=== PATIENT | male | born 1960 | race Caucasian/White ===

== ENCOUNTER 2018-01-10 12:48 | Inpatient (IN) | payer MEDICARE, MEDICAID ==
[~2018-01-10] VITALS: Ht 170.2 cm; Wt 67.9 kg
[~2018-01-10 12:48] MED LIST: ARIP10TA8 PO; ARIP400S3 IM; DOCU250C91 PO; FLUO-191 PO; VITA-328 PO
[2018-01-10 15:39] LABS: BASOPHILS % (AUTO) 0.4 % (0.0-2.0); EOSINOPHILS % (AUTO) 0.1 % (1.0-6.0); HEMATOCRIT 43.9 % (41-53); HEMOGLOBIN 15.3 g/dL (13.5-17.5); LYMPHOCYTES # (AUTO) 0.7 K/uL (1.0-4.8); LYMPHOCYTES % (AUTO) 12.5 % (22.0-44.0); MEAN CORPUSCULAR HEMOGLOBIN 29.6 pg (26.0-34.0); MEAN CORPUSCULAR HGB CONC 34.8 G/dL (31.0-37.0); MEAN CORPUSCULAR VOLUME 85 fL (80-100); MONOCYTES # (AUTO) 0.5 K/uL (0.1-1.0); MONOCYTES % (AUTO) 9.5 % (2.0-9.0); NEUTROPHILS # (AUTO) 4.4 K/uL (1.8-7.7); NEUTROPHILS % (AUTO) 77.5 % (40.0-70.0); PLATELET COUNT (AUTO) 172 K/uL (150-450); RED BLOOD CELL COUNT(AUTO) 5.16 MIL/uL (4.50-5.90); RED CELL DISTRIBUTION WIDTH 13.2 % (11.5-14.5)
[2018-01-10 16:09] LABS: ANION GAP 5 mmol/L (8-16); CALCIUM, TOTAL 8.9 mg/dL (8.8-10.5); CARBON DIOXIDE 30 mmol/L (22-29); CHLORIDE 105 mmol/L (98-107); CREATININE 0.75 mg/dL (0.60-1.30); GLOMERULAR FILTR. RATE CALC > 60 mL/min (>60); GLUCOSE,RANDOM 99 mg/dL (70-110); POTASSIUM 3.8 mmol/L (3.5-5.1); SODIUM SERUM 140 mmol/L (136-145); UREA NITROGEN, BLOOD 7 mg/dL (7-18)
[2018-01-10 16:16] LABS: ALANINE AMINOTRANSFERASE 26 U/L (12-78); ALBUMIN 4.2 g/dL (3.4-5.0); ALKALINE PHOSPHATASE 45 U/L (46-116); ASPARTATE AMINOTRANSFERASE 17 U/L (15-37); BILIRUBIN,TOTAL 0.7 mg/dL (0.1-1.0)
[2018-01-10] MEDS ORDERED: ZOLPIDEM TARTRATE 10 MG TABLET PO PRN (22:00)
[2018-01-11 00:05] VITALS: BP 138/95
[2018-01-11] MEDS: OLANZapine 5 MG RAPDIS TABLET PO PRN (00:15)
[2018-01-11] MEDS: LORazepam 2 MG TABLET PO PRN (00:15)
[2018-01-11] MEDS ORDERED: PNEUMOCOCCAL VACCINE POLYVALENT 0.5 ML VIAL [PPSV23] IM ONE (02:00)
[2018-01-11 08:31] VITALS: BP 138/83
[2018-01-11] MEDS ORDERED: ACETAMINOPHEN 325 MG TABLET PO PRN (12:30)
[2018-01-11] MEDS ORDERED: MAG HYDROX/AL HYDROX/SIMETH ES 30 ML SUSPENSION UDCUP PO PRN (12:30)
[2018-01-11] MEDS ORDERED: HydrOXYzine PAMOATE 50 MG CAPSULE PO PRN (12:30)
[2018-01-11] MEDS ORDERED: MAGNESIUM HYDROXIDE SUSPENSION 30 ML UDCUP PO PRN (12:30)
[2018-01-11] MEDS ORDERED: GuaiFENesin/D-METHORPHAN [SUGAR-FREE] 200-20MG/10 ML SYRUP UDCUP PO PRN (12:30)
[2018-01-11] MEDS ORDERED: PROMETHAZINE HCL 25 MG TABLET PO PRN (12:30)
[2018-01-11] MEDS ORDERED: TUBERCULIN, PURIFIED PROTEIN DERIVATIVE 5 TU/0.1 ML SYG ID ONE (12:30)
[2018-01-11] MEDS ORDERED: LOPERAMIDE HCL 2 MG CAPSULE PO PRN (12:30)
[2018-01-11 16:03] VITALS: BP 115/78
[2018-01-11] MEDS: THIAMINE HCL 100 MG TABLET PO SCH (16:33)
[2018-01-11] MEDS: OLANZapine 5 MG RAPDIS TABLET PO SCH (20:43)
[2018-01-12 07:18] VITALS: BP 140/62
[2018-01-12 08:00] VITALS: BP 116/84
[2018-01-12] MEDS: FOLIC ACID 1 MG TABLET PO SCH (08:08)
[2018-01-12] MEDS: MULTIVITAMINS WITH MINERALS, THERAPEUTIC TABLET PO SCH (08:08)
[2018-01-12] MEDS: THIAMINE HCL 100 MG TABLET PO SCH ×2 (08:08→17:05)
[2018-01-12] MEDS: FLUoxetine HCL 20 MG CAPSULE PO SCH (08:12)
[2018-01-12 08:33] LABS: AMPHET/METH SCREEN,URINE NEGATIVE (NEGATIVE); BARBITURATE SCREEN, URINE NEGATIVE (NEGATIVE); BENZODIAZEPINES SCREEN,URINE NEGATIVE (NEGATIVE); CANNABINOID SCREEN,URINE NEGATIVE (NEGATIVE); COCAINE SCREEN,URINE NEGATIVE (NEGATIVE); METHADONE SCREEN, URINE NEGATIVE (NEGATIVE); OPIATE SCREEN,URINE NEGATIVE (NEGATIVE)
[2018-01-12 08:35] LABS: PHENCYCLIDINE SCREEN,URINE NEGATIVE (NEGATIVE)
[2018-01-12 09:09] LABS: BILIRUBIN,URINE NEGATIVE (NEGATIVE); GLUCOSE, URINE (UA) NEGATIVE (NEGATIVE); KETONES,URINE TRACE mg/dL (NEGATIVE); LEUKOCYTE ESTERASE ,URINE NEGATIVE (NEGATIVE); NITRATE,URINE NEGATIVE (NEGATIVE); OCCULT BLOOD,URINE NEGATIVE (NEGATIVE); PROTEIN,URINE NEGATIVE (NEGATIVE)
[2018-01-12 09:30] LABS: APPEARANCE,URINE SLIGHTLY CLOUDY (CLEAR)
[2018-01-12 09:31] LABS: RBC,URINE None Seen /HPF (0-2)
[2018-01-12 09:33] LABS: BACTERIA,URINE Few /HPF (None Seen); SQUAMOUS EPITHELIAL CELL,UR Rare /LPF (None Seen); TRIPLE PHOSPHATE CRYSTAL,UR Few /LPF (None Seen); WBC,URINE None Seen /HPF (0-5)
[2018-01-12 16:03] VITALS: BP 136/72
[2018-01-12] MEDS: OLANZapine 5 MG RAPDIS TABLET PO SCH (20:49)
[2018-01-13 05:43] VITALS: BP 139/86
[2018-01-13] MEDS: FLUoxetine HCL 20 MG CAPSULE PO SCH (08:09)
[2018-01-13] MEDS: MULTIVITAMINS WITH MINERALS, THERAPEUTIC TABLET PO SCH (08:09)
[2018-01-13] MEDS: OLANZapine 5 MG RAPDIS TABLET PO PRN (08:09)
[2018-01-13] MEDS: THIAMINE HCL 100 MG TABLET PO SCH ×2 (08:09→16:44)
[2018-01-13] MEDS: FOLIC ACID 1 MG TABLET PO SCH (08:09)
[2018-01-13] MEDS: LORazepam 2 MG TABLET PO PRN (08:09)
[2018-01-13 11:09] VITALS: BP 136/80
[2018-01-13] MEDS ORDERED: OLANZapine 10 MG RAPDIS TABLET PO PRN (14:00)
[2018-01-13 16:03] VITALS: BP 138/85
[2018-01-13] MEDS: OLANZapine 5 MG RAPDIS TABLET PO SCH (20:44)
[2018-01-14 06:43] VITALS: BP 130/63
[2018-01-14 08:25] VITALS: BP 114/80
[2018-01-14] MEDS: FOLIC ACID 1 MG TABLET PO SCH (08:39)
[2018-01-14] MEDS: THIAMINE HCL 100 MG TABLET PO SCH ×2 (08:39→17:02)
[2018-01-14] MEDS: MULTIVITAMINS WITH MINERALS, THERAPEUTIC TABLET PO SCH (08:39)
[2018-01-14] MEDS: FLUoxetine HCL 20 MG CAPSULE PO SCH (08:43)
[2018-01-14 09:25] LABS: HEMOGLOBIN A1C 5.8 % (4.5-6.2)
[2018-01-14 10:07] LABS: CHOL/HDL RATIO 3.5 (4.2-7.3); CHOLESTEROL 205 mg/dL (131-200); CREATINE KINASE, TOTAL 44 U/L (39-308); FREE T4 (FREE THYROXINE) 0.95 ng/dL (0.76-1.46); HDL CHOLESTEROL 59 mg/dL (40-60); LDL CHOL (CALC.) 128 mg/dL (0-130); THYROID STIMULATING HORMONE 1.29 uIU/mL (0.36-3.74); TRIGLYCERIDES 92 mg/dL (15-150)
[2018-01-14 10:51] LABS: FOLATE SERUM 10.6 ng/mL (5.4-)
[2018-01-14 16:05] VITALS: BP 135/72
[2018-01-14] MEDS: OLANZapine 5 MG RAPDIS TABLET PO SCH (20:21)
[2018-01-15 05:45] VITALS: BP 131/79
[2018-01-15] MEDS: MULTIVITAMINS WITH MINERALS, THERAPEUTIC TABLET PO SCH (08:01)
[2018-01-15] MEDS: THIAMINE HCL 100 MG TABLET PO SCH ×2 (08:01→16:39)
[2018-01-15] MEDS: FOLIC ACID 1 MG TABLET PO SCH (08:01)
[2018-01-15] MEDS: FLUoxetine HCL 20 MG CAPSULE PO SCH (08:02)
[2018-01-15 08:30] VITALS: BP 138/65
[2018-01-15 16:04] VITALS: BP 135/81
[2018-01-15] MEDS: OLANZapine 5 MG RAPDIS TABLET PO SCH (21:00)
[2018-01-15] MEDS: OXcarbazepine 300 MG TABLET PO SCH (21:00)
[2018-01-16 00:30] VITALS: BP 160/91
[2018-01-16] MEDS: CloNIDine HCL 0.1 MG TABLET PO PRN (00:35)
[2018-01-16 01:35] VITALS: BP 135/80
[2018-01-16 02:30] VITALS: BP 135/80
[2018-01-16] MEDS: FOLIC ACID 1 MG TABLET PO SCH (08:08)
[2018-01-16] MEDS: MULTIVITAMINS WITH MINERALS, THERAPEUTIC TABLET PO SCH (08:08)
[2018-01-16] MEDS: THIAMINE HCL 100 MG TABLET PO SCH ×2 (08:08→16:04)
[2018-01-16 08:16] VITALS: BP 131/85
[2018-01-16 16:06] VITALS: BP 126/72
[2018-01-16] MEDS: OXcarbazepine 300 MG TABLET PO SCH (20:03)
[2018-01-16] MEDS: OLANZapine 5 MG RAPDIS TABLET PO SCH (20:03)
[2018-01-17 05:27] VITALS: BP_SYST 165; BP_DIAS 89; BP_DIAS 98
[2018-01-17] MEDS: CloNIDine HCL 0.1 MG TABLET PO PRN (06:03)
[2018-01-17 07:03] VITALS: BP 135/80
[2018-01-17 07:34] VITALS: BP_SYST 135
[2018-01-17] MEDS: THIAMINE HCL 100 MG TABLET PO SCH ×2 (08:07→16:20)
[2018-01-17] MEDS: FOLIC ACID 1 MG TABLET PO SCH (08:07)
[2018-01-17] MEDS: MULTIVITAMINS WITH MINERALS, THERAPEUTIC TABLET PO SCH (08:07)
[2018-01-17 08:29] VITALS: BP 133/82
[2018-01-17 16:05] VITALS: BP 126/68
[2018-01-17] MEDS: OXcarbazepine 300 MG TABLET PO SCH (21:12)
[2018-01-17] MEDS: OLANZapine 5 MG RAPDIS TABLET PO SCH (21:12)
[2018-01-18 06:05] VITALS: BP 142/86
[2018-01-18] MEDS: THIAMINE HCL 100 MG TABLET PO SCH ×2 (08:01→16:32)
[2018-01-18] MEDS: FOLIC ACID 1 MG TABLET PO SCH (08:01)
[2018-01-18] MEDS: MULTIVITAMINS WITH MINERALS, THERAPEUTIC TABLET PO SCH (08:01)
[2018-01-18 08:20] VITALS: BP 126/72
[2018-01-18 16:08] VITALS: BP 136/84
[2018-01-18] MEDS: DOCUSATE SODIUM 250 MG CAPSULE PO SCH (16:32)
[2018-01-18] MEDS: OLANZapine 10 MG RAPDIS TABLET PO SCH (20:43)
[2018-01-19 05:44] VITALS: BP 153/75
[2018-01-19] MEDS: MULTIVITAMINS WITH MINERALS, THERAPEUTIC TABLET PO SCH (08:05)
[2018-01-19] MEDS: FOLIC ACID 1 MG TABLET PO SCH (08:05)
[2018-01-19] MEDS: THIAMINE HCL 100 MG TABLET PO SCH ×2 (08:06→16:34)
[2018-01-19] MEDS: DOCUSATE SODIUM 250 MG CAPSULE PO SCH ×2 (08:06→16:34)
[2018-01-19 08:15] VITALS: BP 112/51
[2018-01-19] MEDS: CloNIDine HCL 0.1 MG TABLET PO PRN (16:08)
[2018-01-19 16:13] VITALS: BP 164/99
[2018-01-19 17:00] VITALS: BP 139/81
[2018-01-19] MEDS: OLANZapine 10 MG RAPDIS TABLET PO SCH (20:57)
[2018-01-20 05:11] VITALS: BP 140/74
[2018-01-20] MEDS: DOCUSATE SODIUM 250 MG CAPSULE PO SCH ×2 (08:07→16:08)
[2018-01-20] MEDS: FOLIC ACID 1 MG TABLET PO SCH (08:07)
[2018-01-20] MEDS: MULTIVITAMINS WITH MINERALS, THERAPEUTIC TABLET PO SCH (08:07)
[2018-01-20] MEDS: THIAMINE HCL 100 MG TABLET PO SCH ×2 (08:07→16:08)
[2018-01-20 08:41] VITALS: BP 137/74
[2018-01-20 16:11] VITALS: BP 109/62
[2018-01-20] MEDS: OLANZapine 10 MG RAPDIS TABLET PO SCH (20:26)
[2018-01-21] VITALS (7 sets, daily range): BP systolic 116–164; BP diastolic 69–98
[2018-01-21] MEDS: CloNIDine HCL 0.1 MG TABLET PO PRN ×2 (00:58→17:02)
[2018-01-21] MEDS: MULTIVITAMINS WITH MINERALS, THERAPEUTIC TABLET PO SCH (08:14)
[2018-01-21] MEDS: THIAMINE HCL 100 MG TABLET PO SCH (08:14)
[2018-01-21] MEDS: DOCUSATE SODIUM 250 MG CAPSULE PO SCH ×2 (08:14→16:09)
[2018-01-21] MEDS: FOLIC ACID 1 MG TABLET PO SCH (08:14)
[2018-01-21] MEDS: AmLODIPine BESYLATE 2.5 MG TABLET PO SCH (11:55)
[2018-01-21] MEDS: OLANZapine 10 MG RAPDIS TABLET PO SCH (20:18)
[2018-01-22 00:15] VITALS: BP 130/77
[2018-01-22] MEDS: AmLODIPine BESYLATE 2.5 MG TABLET PO SCH (08:11)
[2018-01-22] MEDS: MULTIVITAMINS WITH MINERALS, THERAPEUTIC TABLET PO SCH (08:11)
[2018-01-22] MEDS: DOCUSATE SODIUM 250 MG CAPSULE PO SCH ×2 (08:11→16:09)
[2018-01-22 08:32] VITALS: BP 116/60
[2018-01-22 16:33] VITALS: BP 143/85
[2018-01-22] MEDS: OLANZapine 10 MG RAPDIS TABLET PO SCH (20:16)
[2018-01-23 07:17] VITALS: BP 140/90
[2018-01-23] MEDS: AmLODIPine BESYLATE 2.5 MG TABLET PO SCH (08:19)
[2018-01-23] MEDS: DOCUSATE SODIUM 250 MG CAPSULE PO SCH ×2 (08:19→16:15)
[2018-01-23] MEDS: MULTIVITAMINS WITH MINERALS, THERAPEUTIC TABLET PO SCH (08:19)
[2018-01-23 08:35] VITALS: BP 147/86
[2018-01-23 16:21] VITALS: BP_SYST 143; BP_DIAS 86; BP_DIAS 96
[2018-01-23] MEDS: OLANZapine 10 MG RAPDIS TABLET PO SCH (20:12)
[2018-01-24 06:43] VITALS: BP 131/70
[2018-01-24 08:00] VITALS: BP 139/88
[2018-01-24] MEDS: AmLODIPine BESYLATE 2.5 MG TABLET PO SCH (08:20)
[2018-01-24] MEDS: DOCUSATE SODIUM 250 MG CAPSULE PO SCH ×2 (08:20→16:37)
[2018-01-24] MEDS: MULTIVITAMINS WITH MINERALS, THERAPEUTIC TABLET PO SCH (08:20)
[2018-01-24 16:27] VITALS: BP 153/82
[2018-01-24] MEDS: OLANZapine 10 MG RAPDIS TABLET PO SCH (20:36)
[2018-01-24 20:46] VITALS: BP 141/77
[2018-01-25 00:05] VITALS: BP 140/81
[2018-01-25 08:26] VITALS: BP 149/87
[2018-01-25] MEDS: AmLODIPine BESYLATE 2.5 MG TABLET PO SCH (08:44)
[2018-01-25] MEDS: MULTIVITAMINS WITH MINERALS, THERAPEUTIC TABLET PO SCH (08:44)
[2018-01-25] MEDS: DOCUSATE SODIUM 250 MG CAPSULE PO SCH ×2 (08:44→16:36)
[2018-01-25] MEDS ORDERED: DULoxetine HCL 20 MG CAPSULE PO SCH (09:00)
[2018-01-25 16:10] VITALS: BP 138/76
[2018-01-25] MEDS: OLANZapine 10 MG RAPDIS TABLET PO SCH (20:32)
[2018-01-26 01:14] VITALS: BP 142/90
[2018-01-26 06:25] VITALS: BP 135/86
[2018-01-26 08:12] VITALS: BP 136/76
[2018-01-26] MEDS: AmLODIPine BESYLATE 5 MG TABLET PO SCH (08:53)
[2018-01-26] MEDS: DOCUSATE SODIUM 250 MG CAPSULE PO SCH ×2 (08:53→16:33)
[2018-01-26] MEDS: MULTIVITAMINS WITH MINERALS, THERAPEUTIC TABLET PO SCH (08:53)
[2018-01-26] MEDS ORDERED: DULoxetine HCL 30 MG CAPSULE PO SCH (09:00)
[2018-01-26 16:18] VITALS: BP 137/86
[2018-01-26] MEDS: OLANZapine 10 MG RAPDIS TABLET PO SCH (20:31)
[2018-01-27 00:03] VITALS: BP 133/83
[2018-01-27 08:00] VITALS: BP 128/76
[2018-01-27] MEDS: DULoxetine HCL 20 MG CAPSULE PO SCH (08:07)
[2018-01-27] MEDS: DOCUSATE SODIUM 250 MG CAPSULE PO SCH ×2 (08:07→16:32)
[2018-01-27] MEDS: MULTIVITAMINS WITH MINERALS, THERAPEUTIC TABLET PO SCH (08:07)
[2018-01-27] MEDS: AmLODIPine BESYLATE 5 MG TABLET PO SCH (08:07)
[2018-01-27] MEDS ORDERED: OLAN10TA22 PO (12:37)
[2018-01-27] MEDS ORDERED: DULO20CA30 PO (12:37)
[2018-01-27] MEDS: CloNIDine HCL 0.1 MG TABLET PO PRN (16:08)
[2018-01-27 16:13] VITALS: BP 173/96
[2018-01-27 17:10] VITALS: BP 139/72
[2018-01-27] MEDS: OLANZapine 10 MG RAPDIS TABLET PO SCH (20:34)
[2018-01-27] MEDS ORDERED: DOCU250C91 PO (21:46)
[2018-01-27] MEDS ORDERED: AMLO-511 PO (21:46)
[2018-01-28 07:28] VITALS: BP 151/83
[2018-01-28] MEDS: DULoxetine HCL 20 MG CAPSULE PO SCH (08:11)
[2018-01-28] MEDS: DOCUSATE SODIUM 250 MG CAPSULE PO SCH (08:11)
[2018-01-28] MEDS: AmLODIPine BESYLATE 5 MG TABLET PO SCH (08:11)
[2018-01-28] MEDS: MULTIVITAMINS WITH MINERALS, THERAPEUTIC TABLET PO SCH (08:11)
[2018-01-28 08:30] VITALS: BP 131/82
== END 2018-01-28 10:35 | disposition home or self-care (01) | DRG 885 ==
LOC: EMS 12:50 → B2X 21:00
PROVIDERS: ADMIT Psychiatry & Neurology Psychiatry; ATTEND Psychiatry & Neurology Psychiatry
DX: F33.3 Major depressive disorder, recurrent, severe with psychotic symptoms (principal); G93.40 Encephalopathy, unspecified; F10.231 Alcohol dependence with withdrawal delirium; D64.9 Anemia, unspecified; E78.00 Pure hypercholesterolemia, unspecified; E78.5 Hyperlipidemia, unspecified; E87.6 Hypokalemia; F17.200 Nicotine dependence, unspecified, uncomplicated; G47.00 Insomnia, unspecified; I10 Essential (primary) hypertension; K59.00 Constipation, unspecified; Z88.0 Allergy status to penicillin; Z91.19 Patient's noncompliance with other medical treatment and regimen; Z28.21 Immunization not carried out because of patient refusal
CPT/HCPCS: 70450; 80074; 82306; 82607; 82746; 83036; 83735; 84439; 84443; 86592; 99285; G0480

== ENCOUNTER 2018-02-25 08:44 | Inpatient (IN) | payer MEDICARE, MEDICAID ==
[~2018-02-25] VITALS: Ht 177.8 cm; Wt 64.4 kg
[~2018-02-25 08:44] MED LIST changes: +AMLO-511 PO; -ARIP10TA8 PO; -ARIP400S3 IM; +DULO20CA30 PO; -FLUO-191 PO; +OLAN10TA22 PO; -VITA-328 PO
[2018-02-25 09:12] LABS: BASOPHILS % (AUTO) 0.4 % (0.0-2.0); EOSINOPHILS % (AUTO) 0.1 % (1.0-6.0); HEMATOCRIT 45.2 % (41-53); HEMOGLOBIN 15.6 g/dL (13.5-17.5); LYMPHOCYTES # (AUTO) 0.7 K/uL (1.0-4.8); LYMPHOCYTES % (AUTO) 9.3 % (22.0-44.0); MEAN CORPUSCULAR HEMOGLOBIN 29.7 pg (26.0-34.0); MEAN CORPUSCULAR HGB CONC 34.6 G/dL (31.0-37.0); MEAN CORPUSCULAR VOLUME 86 fL (80-100); MONOCYTES # (AUTO) 0.8 K/uL (0.1-1.0); MONOCYTES % (AUTO) 9.6 % (2.0-9.0); NEUTROPHILS # (AUTO) 6.4 K/uL (1.8-7.7); NEUTROPHILS % (AUTO) 80.6 % (40.0-70.0); PLATELET COUNT (AUTO) 158 K/uL (150-450); RED BLOOD CELL COUNT(AUTO) 5.26 MIL/uL (4.50-5.90); RED CELL DISTRIBUTION WIDTH 12.9 % (11.5-14.5)
[2018-02-25 09:21] LABS: ANION GAP 6 mmol/L (8-16); CALCIUM, TOTAL 9.2 mg/dL (8.8-10.5); CARBON DIOXIDE 32 mmol/L (22-29); CHLORIDE 103 mmol/L (98-107); CREATININE 0.76 mg/dL (0.60-1.30); GLOMERULAR FILTR. RATE CALC > 60 mL/min (>60); GLUCOSE,RANDOM 114 mg/dL (70-110); POTASSIUM 3.8 mmol/L (3.5-5.1); SODIUM SERUM 141 mmol/L (136-145); UREA NITROGEN, BLOOD 7 mg/dL (7-18)
[2018-02-25 09:27] LABS: ALANINE AMINOTRANSFERASE 23 U/L (12-78); ALBUMIN 4.1 g/dL (3.4-5.0); ALKALINE PHOSPHATASE 61 U/L (46-116); ASPARTATE AMINOTRANSFERASE 14 U/L (15-37); BILIRUBIN,TOTAL 0.7 mg/dL (0.1-1.0); TOTAL PROTEIN, SERUM 7.2 g/dL (6.4-8.2)
[2018-02-25] MEDS ORDERED: ACETAMINOPHEN 325 MG TABLET PO PRN (14:30)
[2018-02-25] MEDS ORDERED: PROMETHAZINE HCL 25 MG TABLET PO PRN (14:30)
[2018-02-25] MEDS ORDERED: LORazepam 2 MG TABLET PO PRN (14:30)
[2018-02-25] MEDS ORDERED: ZOLPIDEM TARTRATE 10 MG TABLET PO PRN (14:30)
[2018-02-25] MEDS ORDERED: OLANZapine 5 MG RAPDIS TABLET PO PRN (14:30)
[2018-02-25] MEDS ORDERED: HydrOXYzine PAMOATE 50 MG CAPSULE PO PRN (14:30)
[2018-02-25] MEDS ORDERED: LOPERAMIDE HCL 2 MG CAPSULE PO PRN (14:30)
[2018-02-25] MEDS ORDERED: GuaiFENesin/D-METHORPHAN [SUGAR-FREE] 200-20MG/10 ML SYRUP UDCUP PO PRN (14:30)
[2018-02-25] MEDS ORDERED: MAGNESIUM HYDROXIDE SUSPENSION 30 ML UDCUP PO PRN (14:30)
[2018-02-25] MEDS ORDERED: MAG HYDROX/AL HYDROX/SIMETH ES 30 ML SUSPENSION UDCUP PO PRN (14:30)
[2018-02-25] MEDS: THIAMINE HCL 100 MG TABLET PO SCH (18:45)
[2018-02-25 19:30] VITALS: BP 113/57
[2018-02-25] MEDS ORDERED: PNEUMOCOCCAL VACCINE POLYVALENT 0.5 ML VIAL [PPSV23] IM ONE (19:30)
[2018-02-25] MEDS ORDERED: OLANZapine 5 MG RAPDIS TABLET PO SCH (21:00)
[2018-02-26 01:21] VITALS: BP 115/70
[2018-02-26 08:17] VITALS: BP 122/84
[2018-02-26] MEDS: DULoxetine HCL 20 MG CAPSULE PO SCH (08:19)
[2018-02-26] MEDS: DOCUSATE SODIUM 250 MG CAPSULE PO SCH ×2 (08:19→16:23)
[2018-02-26] MEDS: MULTIVITAMINS WITH MINERALS, THERAPEUTIC TABLET PO SCH (08:19)
[2018-02-26] MEDS: AmLODIPine BESYLATE 5 MG TABLET PO SCH (08:19)
[2018-02-26] MEDS: THIAMINE HCL 100 MG TABLET PO SCH ×2 (08:19→16:23)
[2018-02-26] MEDS: FOLIC ACID 1 MG TABLET PO SCH (08:19)
[2018-02-26 16:04] VITALS: BP 146/88
[2018-02-26] MEDS ORDERED: OLANZapine 10 MG TABLET PO SCH (21:00)
[2018-02-27 00:35] VITALS: BP 154/87
[2018-02-27 08:45] VITALS: BP 121/86
[2018-02-27] MEDS: DULoxetine HCL 20 MG CAPSULE PO SCH (08:47)
[2018-02-27] MEDS: FOLIC ACID 1 MG TABLET PO SCH (08:47)
[2018-02-27] MEDS: THIAMINE HCL 100 MG TABLET PO SCH ×2 (08:47→16:22)
[2018-02-27] MEDS: AmLODIPine BESYLATE 5 MG TABLET PO SCH (08:47)
[2018-02-27] MEDS: MULTIVITAMINS WITH MINERALS, THERAPEUTIC TABLET PO SCH (08:47)
[2018-02-27] MEDS: DOCUSATE SODIUM 250 MG CAPSULE PO SCH ×2 (08:47→16:22)
[2018-02-27 16:05] VITALS: BP 123/89
[2018-02-27] MEDS ORDERED: OLANZapine 10 MG TABLET PO SCH (21:00)
[2018-02-28 00:49] VITALS: BP 160/98
[2018-02-28] MEDS ORDERED: CloNIDine HCL 0.1 MG TABLET PO PRN (06:30)
[2018-02-28 06:49] VITALS: BP 136/91
[2018-02-28] MEDS: AmLODIPine BESYLATE 5 MG TABLET PO SCH (08:46)
[2018-02-28 08:51] VITALS: BP 145/88
[2018-02-28] MEDS: MULTIVITAMINS WITH MINERALS, THERAPEUTIC TABLET PO SCH (08:54)
[2018-02-28] MEDS: DOCUSATE SODIUM 250 MG CAPSULE PO SCH ×2 (08:54→17:12)
[2018-02-28] MEDS: THIAMINE HCL 100 MG TABLET PO SCH ×2 (08:54→17:12)
[2018-02-28] MEDS: FOLIC ACID 1 MG TABLET PO SCH (08:54)
[2018-02-28] MEDS: DULoxetine HCL 20 MG CAPSULE PO SCH (08:54)
[2018-02-28] MEDS ORDERED: PROMETHAZINE HCL 25 MG TABLET PO PRN (11:15)
[2018-02-28] MEDS ORDERED: LOPERAMIDE HCL 2 MG CAPSULE PO PRN (11:15)
[2018-02-28] MEDS ORDERED: ACETAMINOPHEN 325 MG TABLET PO PRN (11:15)
[2018-02-28] MEDS ORDERED: MAG HYDROX/AL HYDROX/SIMETH ES 30 ML SUSPENSION UDCUP PO PRN (11:15)
[2018-02-28] MEDS ORDERED: MAGNESIUM HYDROXIDE SUSPENSION 30 ML UDCUP PO PRN (11:15)
[2018-02-28 16:17] VITALS: BP 113/72
[2018-02-28] MEDS: OLANZapine 7.5 MG TABLET PO SCH (21:00)
[2018-03-01 08:10] VITALS: BP 141/89
[2018-03-01] MEDS: DOCUSATE SODIUM 250 MG CAPSULE PO SCH ×2 (09:00→16:35)
[2018-03-01] MEDS: DULoxetine HCL 20 MG CAPSULE PO SCH (09:00)
[2018-03-01] MEDS: AmLODIPine BESYLATE 5 MG TABLET PO SCH ×2 (09:00→10:37)
[2018-03-01] MEDS: FOLIC ACID 1 MG TABLET PO SCH (09:00)
[2018-03-01] MEDS: THIAMINE HCL 100 MG TABLET PO SCH ×2 (09:00→16:35)
[2018-03-01] MEDS: MULTIVITAMINS WITH MINERALS, THERAPEUTIC TABLET PO SCH (09:00)
[2018-03-01 16:18] VITALS: BP 121/72
[2018-03-01] MEDS: OLANZapine 7.5 MG TABLET PO SCH (20:41)
[2018-03-02 01:39] VITALS: BP 120/70
[2018-03-02 08:00] VITALS: BP 125/79
[2018-03-02] MEDS: DULoxetine HCL 20 MG CAPSULE PO SCH (08:37)
[2018-03-02] MEDS: AmLODIPine BESYLATE 5 MG TABLET PO SCH (08:37)
[2018-03-02] MEDS: DOCUSATE SODIUM 250 MG CAPSULE PO SCH ×2 (08:37→16:22)
[2018-03-02] MEDS: MULTIVITAMINS WITH MINERALS, THERAPEUTIC TABLET PO SCH (08:38)
[2018-03-02] MEDS: THIAMINE HCL 100 MG TABLET PO SCH ×2 (08:38→16:22)
[2018-03-02] MEDS: FOLIC ACID 1 MG TABLET PO SCH (08:38)
[2018-03-02] MEDS: OLANZapine 7.5 MG TABLET PO SCH (20:19)
[2018-03-03 06:40] VITALS: BP 138/75
[2018-03-03 08:29] VITALS: BP 144/79
[2018-03-03] MEDS: AmLODIPine BESYLATE 5 MG TABLET PO SCH (08:49)
[2018-03-03] MEDS: DULoxetine HCL 20 MG CAPSULE PO SCH (08:49)
[2018-03-03] MEDS: MULTIVITAMINS WITH MINERALS, THERAPEUTIC TABLET PO SCH (08:54)
[2018-03-03] MEDS: FOLIC ACID 1 MG TABLET PO SCH (08:54)
[2018-03-03] MEDS: DOCUSATE SODIUM 250 MG CAPSULE PO SCH ×2 (08:54→16:33)
[2018-03-03] MEDS: THIAMINE HCL 100 MG TABLET PO SCH ×2 (08:54→16:33)
[2018-03-03 16:11] VITALS: BP 121/72
[2018-03-03] MEDS: OLANZapine 7.5 MG TABLET PO SCH (20:36)
[2018-03-04 06:37] VITALS: BP 126/84
[2018-03-04 08:10] VITALS: BP 130/84
[2018-03-04] MEDS: DULoxetine HCL 20 MG CAPSULE PO SCH (08:17)
[2018-03-04] MEDS: AmLODIPine BESYLATE 5 MG TABLET PO SCH (08:17)
[2018-03-04] MEDS: THIAMINE HCL 100 MG TABLET PO SCH ×2 (08:23→16:35)
[2018-03-04] MEDS: MULTIVITAMINS WITH MINERALS, THERAPEUTIC TABLET PO SCH (08:23)
[2018-03-04] MEDS: FOLIC ACID 1 MG TABLET PO SCH (08:23)
[2018-03-04] MEDS: DOCUSATE SODIUM 250 MG CAPSULE PO SCH ×2 (08:23→16:33)
[2018-03-04] MEDS: OLANZapine 7.5 MG TABLET PO SCH (20:32)
[2018-03-05 08:22] VITALS: BP 118/72
[2018-03-05] MEDS: DULoxetine HCL 20 MG CAPSULE PO SCH (08:29)
[2018-03-05] MEDS: AmLODIPine BESYLATE 5 MG TABLET PO SCH (08:29)
[2018-03-05] MEDS: MULTIVITAMINS WITH MINERALS, THERAPEUTIC TABLET PO SCH (08:34)
[2018-03-05] MEDS: DOCUSATE SODIUM 250 MG CAPSULE PO SCH ×2 (08:34→16:39)
[2018-03-05] MEDS: FOLIC ACID 1 MG TABLET PO SCH (08:34)
[2018-03-05] MEDS: THIAMINE HCL 100 MG TABLET PO SCH ×2 (08:34→16:39)
[2018-03-05 16:16] VITALS: BP 138/67
[2018-03-05] MEDS: OLANZapine 7.5 MG TABLET PO SCH (21:19)
[2018-03-05] MEDS ORDERED: HALOPERIDOL LACTATE 5 MG/ML VIAL ONE (22:53)
[2018-03-05] MEDS ORDERED: LORazepam 2 MG/ML VIAL ONE (22:53)
[2018-03-05] MEDS ORDERED: DiphenhydrAMINE HCL 50 MG/ML VIAL ONE (22:53)
[2018-03-05] MEDS ORDERED: LORazepam 2 MG/ML VIAL IM ONE (23:00)
[2018-03-05] MEDS ORDERED: HALOPERIDOL LACTATE 5 MG/ML VIAL IM ONE (23:00)
[2018-03-05] MEDS ORDERED: DiphenhydrAMINE HCL 50 MG/ML VIAL IM ONE (23:00)
[2018-03-06 00:01] VITALS: BP 140/90
[2018-03-06 08:41] VITALS: BP 138/78
[2018-03-06] MEDS: THIAMINE HCL 100 MG TABLET PO SCH ×2 (09:00→16:16)
[2018-03-06] MEDS: AmLODIPine BESYLATE 5 MG TABLET PO SCH (09:00)
[2018-03-06] MEDS: MULTIVITAMINS WITH MINERALS, THERAPEUTIC TABLET PO SCH (09:00)
[2018-03-06] MEDS: DULoxetine HCL 20 MG CAPSULE PO SCH (09:00)
[2018-03-06] MEDS: DOCUSATE SODIUM 250 MG CAPSULE PO SCH ×2 (09:00→16:16)
[2018-03-06] MEDS: FOLIC ACID 1 MG TABLET PO SCH (09:00)
[2018-03-06 16:12] VITALS: BP 124/62
[2018-03-06] MEDS: OLANZapine 7.5 MG TABLET PO SCH (20:05)
[2018-03-07 01:56] VITALS: BP 136/67
[2018-03-07 08:37] VITALS: BP 131/73
[2018-03-07] MEDS: AmLODIPine BESYLATE 5 MG TABLET PO SCH (08:37)
[2018-03-07] MEDS: DOCUSATE SODIUM 250 MG CAPSULE PO SCH ×2 (08:37→16:37)
[2018-03-07] MEDS: MULTIVITAMINS WITH MINERALS, THERAPEUTIC TABLET PO SCH (08:37)
[2018-03-07] MEDS: THIAMINE HCL 100 MG TABLET PO SCH (08:40)
[2018-03-07] MEDS: FOLIC ACID 1 MG TABLET PO SCH (08:40)
[2018-03-07] MEDS: DULoxetine HCL 20 MG CAPSULE PO SCH (08:40)
[2018-03-07 16:05] VITALS: BP 139/81
[2018-03-07] MEDS: OLANZapine 10 MG TABLET PO SCH (20:45)
[2018-03-08 06:12] VITALS: BP 131/86
[2018-03-08] MEDS: MULTIVITAMINS WITH MINERALS, THERAPEUTIC TABLET PO SCH (08:15)
[2018-03-08] MEDS: AmLODIPine BESYLATE 5 MG TABLET PO SCH (08:15)
[2018-03-08] MEDS: DOCUSATE SODIUM 250 MG CAPSULE PO SCH ×2 (08:15→16:35)
[2018-03-08] MEDS: DULoxetine HCL 20 MG CAPSULE PO SCH (08:19)
[2018-03-08 08:31] VITALS: BP 143/89
[2018-03-08 16:19] VITALS: BP 127/89
[2018-03-08] MEDS: OLANZapine 10 MG TABLET PO SCH (20:19)
[2018-03-09 02:38] VITALS: BP 136/78
[2018-03-09 08:13] VITALS: BP 130/83
[2018-03-09] MEDS: DOCUSATE SODIUM 250 MG CAPSULE PO SCH ×2 (08:18→16:37)
[2018-03-09] MEDS: DULoxetine HCL 20 MG CAPSULE PO SCH (08:18)
[2018-03-09] MEDS: AmLODIPine BESYLATE 5 MG TABLET PO SCH (08:18)
[2018-03-09] MEDS: MULTIVITAMINS WITH MINERALS, THERAPEUTIC TABLET PO SCH (08:18)
[2018-03-09 16:20] VITALS: BP 138/79
[2018-03-09] MEDS: OLANZapine 10 MG TABLET PO SCH (20:40)
[2018-03-10 01:23] VITALS: BP 119/79
[2018-03-10 08:20] VITALS: BP 140/81
[2018-03-10] MEDS: DOCUSATE SODIUM 250 MG CAPSULE PO SCH ×2 (08:24→16:38)
[2018-03-10] MEDS: MULTIVITAMINS WITH MINERALS, THERAPEUTIC TABLET PO SCH (08:24)
[2018-03-10] MEDS: POLYETHYLENE GLYCOL 3350 17 GM PACKET PO SCH (08:24)
[2018-03-10] MEDS: DULoxetine HCL 20 MG CAPSULE PO SCH (08:24)
[2018-03-10] MEDS: AmLODIPine BESYLATE 5 MG TABLET PO SCH (08:24)
[2018-03-10] MEDS ORDERED: DULO20CA30 PO (11:40)
[2018-03-10] MEDS ORDERED: OLAN10TA20 PO (11:40)
[2018-03-10] MEDS ORDERED: MIRALAX PO (13:30)
[2018-03-10 16:07] VITALS: BP 139/81
[2018-03-10] MEDS: OLANZapine 10 MG TABLET PO SCH (20:46)
[2018-03-11 02:52] VITALS: BP 128/79
[2018-03-11 08:23] VITALS: BP 128/76
[2018-03-11] MEDS: DOCUSATE SODIUM 250 MG CAPSULE PO SCH (08:31)
[2018-03-11] MEDS: AmLODIPine BESYLATE 5 MG TABLET PO SCH (08:31)
[2018-03-11] MEDS: MULTIVITAMINS WITH MINERALS, THERAPEUTIC TABLET PO SCH (08:31)
[2018-03-11] MEDS: POLYETHYLENE GLYCOL 3350 17 GM PACKET PO SCH (08:31)
[2018-03-11] MEDS: DULoxetine HCL 20 MG CAPSULE PO SCH (08:31)
== END 2018-03-11 16:20 | disposition home or self-care (01) | DRG 885 ==
LOC: EMS 08:45 → B2X 17:27 → EMS 17:54 → B2X 03-05 09:53
PROVIDERS: ADMIT Psychiatry & Neurology Psychiatry; ATTEND Psychiatry & Neurology Psychiatry
DX: F25.9 Schizoaffective disorder, unspecified (principal); R64 Cachexia; E46 Unspecified protein-calorie malnutrition; F17.210 Nicotine dependence, cigarettes, uncomplicated; Z88.0 Allergy status to penicillin; Z65.3 Problems related to other legal circumstances; K59.00 Constipation, unspecified; I10 Essential (primary) hypertension; Z91.19 Patient's noncompliance with other medical treatment and regimen; R32 Unspecified urinary incontinence; F32.9 Major depressive disorder, single episode, unspecified; F41.9 Anxiety disorder, unspecified; Z28.21 Immunization not carried out because of patient refusal
CPT/HCPCS: 99285; G0480; J1200; J1630; J2060

== ENCOUNTER 2019-07-31 16:01 | Inpatient (IN) | payer OTHER, MEDICAID ==
[~2019-07-31] VITALS: Ht 177.8 cm; Wt 78.4 kg
[~2019-07-31 16:01] MED LIST changes: -AMLO-511 PO; +AMLO5TAB9 PO; -DOCU250C91 PO; +MIRALAX PO; +OLAN10TA20 PO; -OLAN10TA22 PO
[2019-07-31 17:12] LABS: BASOPHILS % (AUTO) 0.5 % (0.0-2.0); EOSINOPHILS % (AUTO) 0.6 % (1.0-6.0); HEMATOCRIT 52.4 % (41-53); HEMOGLOBIN 17.6 g/dL (13.5-17.5); LYMPHOCYTES # (AUTO) 0.9 K/uL (1.0-4.8); LYMPHOCYTES % (AUTO) 10.3 % (22.0-44.0); MEAN CORPUSCULAR HGB CONC 33.6 G/dL (31.0-37.0); MEAN CORPUSCULAR VOLUME 87 fL (80-100); MONOCYTES # (AUTO) 0.7 K/uL (0.1-1.0); MONOCYTES % (AUTO) 7.4 % (2.0-9.0); NEUTROPHILS # (AUTO) 7.3 K/uL (1.8-7.7); NEUTROPHILS % (AUTO) 81.2 % (40.0-70.0); PLATELET COUNT (AUTO) 200 K/uL (150-450); RED BLOOD CELL COUNT(AUTO) 6.05 MIL/uL (4.50-5.90)
[2019-07-31 17:26] LABS: ANION GAP 9 mmol/L (8-16); CALCIUM, TOTAL 9.3 mg/dL (8.8-10.5); CARBON DIOXIDE 28 mmol/L (22-29); CHLORIDE 102 mmol/L (98-107); CREATININE 0.94 mg/dL (0.60-1.30); GLOMERULAR FILTR. RATE CALC > 60 mL/min (>60); GLUCOSE,RANDOM 105 mg/dL (70-110); POTASSIUM 4.2 mmol/L (3.5-5.1); SODIUM SERUM 139 mmol/L (136-145); UREA NITROGEN, BLOOD 8 mg/dL (7-18)
[2019-07-31 17:32] LABS: ALANINE AMINOTRANSFERASE 23 U/L (12-78); ALBUMIN 4.4 g/dL (3.4-5.0); ALKALINE PHOSPHATASE 81 U/L (46-116); ASPARTATE AMINOTRANSFERASE 13 U/L (15-37); BILIRUBIN,TOTAL 0.5 mg/dL (0.1-1.0)
[2019-07-31] MEDS ORDERED: METO25 PO (18:30)
[2019-07-31] MEDS ORDERED: ESCI10TA PO (18:30)
[2019-07-31] MEDS ORDERED: SODIUM CHLORIDE 0.9% 1,000 ML IV ONE (19:00)
[2019-07-31] MEDS ORDERED: BUSP5TAB3 PO (19:02)
[2019-07-31] MEDS ORDERED: IOVERSOL 350 MG/ML 100 ML VIAL ONE (19:54)
[2019-07-31] MEDS ORDERED: SODIUM CHLORIDE 0.9% 100 ML ONE (19:54)
[2019-07-31] MEDS ORDERED: MAGNESIUM CITRATE 300 ML ORAL SOLUTION PO ONE (21:00)
[2019-08-01] MEDS ORDERED: HALOPERIDOL 5 MG TABLET PO PRN (00:45)
[2019-08-01] MEDS ORDERED: ZOLPIDEM TARTRATE 10 MG TABLET PO PRN (00:45)
[2019-08-01] MEDS ORDERED: LORazepam 2 MG TABLET PO PRN (00:45)
[2019-08-01 03:58] VITALS: BP 164/91
[2019-08-01 08:59] VITALS: BP 126/73
[2019-08-01] MEDS ORDERED: LOPERAMIDE HCL 2 MG CAPSULE PO PRN ×2 (12:15→13:15)
[2019-08-01] MEDS ORDERED: GuaiFENesin/D-METHORPHAN [SUGAR-FREE] 200-20MG/10 ML SYRUP UDCUP PO PRN (13:15)
[2019-08-01] MEDS ORDERED: PETROLATUM,WHITE 28 GM JELLY TP PRN (13:15)
[2019-08-01] MEDS ORDERED: ALBUTEROL SULFATE HFA 90 MCG/PUFF 8 GM INHALER IH PRN (13:15)
[2019-08-01] MEDS ORDERED: MAG HYDROX/AL HYDROX/SIMETH ES 30 ML SUSPENSION UDCUP PO PRN (13:15)
[2019-08-01] MEDS ORDERED: MAGNESIUM HYDROXIDE SUSPENSION 30 ML UDCUP PO PRN (13:15)
[2019-08-01] MEDS ORDERED: IBUPROFEN 400 MG TABLET PO PRN (13:15)
[2019-08-01] MEDS ORDERED: ACETAMINOPHEN 325 MG TABLET PO PRN (13:15)
[2019-08-01] MEDS ORDERED: ONDANSETRON HCL 4 MG TABLET PO PRN (13:15)
[2019-08-01] MEDS ORDERED: CloNIDine HCL 0.1 MG TABLET PO PRN (13:15)
[2019-08-01] MEDS ORDERED: DOCUSATE SODIUM 100 MG CAPSULE PO PRN (13:15)
[2019-08-01] MEDS ORDERED: NICOTINE 14 MG/24 HOUR PATCH TD PRN (13:15)
[2019-08-01] MEDS ORDERED: OLAN5TAB2 PO (13:36)
[2019-08-01] MEDS ORDERED: METOPROLOL TARTRATE 25 MG TABLET PO SCH (17:00)
[2019-08-01] MEDS ORDERED: OLANZapine 5 MG TABLET PO SCH (17:00)
[2019-08-02] MEDS ORDERED: ESCITALOPRAM OXALATE 20 MG TABLET PO SCH (09:00)
== END 2019-08-01 16:30 | disposition short-term general hospital (02) | DRG 885 ==
LOC: EMS 16:02 → 3EI 08-01 02:40 → 3EX 08-01 02:40 → UNDOADMIN 08-01 02:40
PROVIDERS: ADMIT Psychiatry & Neurology Psychiatry; ATTEND Psychiatry & Neurology Psychiatry
DX: F25.1 Schizoaffective disorder, depressive type (principal); F33.1 Major depressive disorder, recurrent, moderate; R45.851 Suicidal ideations; F17.210 Nicotine dependence, cigarettes, uncomplicated; I10 Essential (primary) hypertension; N40.0 Benign prostatic hyperplasia without lower urinary tract symptoms; F41.9 Anxiety disorder, unspecified; R45.87 Impulsiveness
CPT/HCPCS: 74177; 83605; G0378; G0480; J7050

== ENCOUNTER 2022-06-09 08:38 | Emergency (ER) | payer MEDICARE, MEDICAID ==
[~2022-06-09] VITALS: Ht 177.8 cm; Wt 68.2 kg
[~2022-06-09 08:38] MED LIST changes: -AMLO5TAB9 PO; -DULO20CA30 PO; +DULO20CA71 PO; +MELA5TAB40 PO; -MIRALAX PO; +NALT50TA PO; -OLAN10TA20 PO; +OLAN10TA26 PO; +OMEG-135 PO
[2022-06-09 08:40] VITALS: BP 156/92
[2022-06-09] MEDS ORDERED: DULO20CA71 PO (10:54)
== END 2022-06-09 11:08 | disposition home or self-care (01) ==
LOC: EMS 08:48
DX: F41.9 Anxiety disorder, unspecified (principal); F32.A Depression, unspecified; F17.210 Nicotine dependence, cigarettes, uncomplicated; Z76.0 Encounter for issue of repeat prescription; Z88.0 Allergy status to penicillin
CPT/HCPCS: 99281; Z7502

== ENCOUNTER 2022-11-04 16:59 | Inpatient (IN) | payer MEDICARE, MEDICAID ==
[~2022-11-04] VITALS: Ht 177.8 cm; Wt 47.4 kg
[2022-11-04 19:51] LABS: COVID AG,FIA SOURCE NASAL SWAB
[2022-11-04 22:23] VITALS: BP 137/87
[2022-11-04] MEDS ORDERED: MAGNESIUM HYDROXIDE SUSPENSION 30 ML UDCUP PO PRN (23:15)
[2022-11-04] MEDS ORDERED: IPRATROPIUM BROMIDE 0.5 MG/2.5 ML NEB SOLUTION NEB PRN (23:15)
[2022-11-04] MEDS ORDERED: ALBUTEROL SULFATE 2.5 MG/0.5 ML NEB SOLUTION NEB PRN (23:15)
[2022-11-04] MEDS: OLANZapine 10 MG RAPDIS TABLET PO SCH (23:15)
[2022-11-04] MEDS ORDERED: BISACODYL 10 MG RECTAL RECTAL SUPPOSITORY PR PRN (23:15)
[2022-11-04] MEDS ORDERED: ACETAMINOPHEN 325 MG TABLET PO PRN (23:15)
[2022-11-04] MEDS: DEXTROSE 5%-0.45% SODIUM CHL 1,000 ML IV SCH (23:30)
[2022-11-05] MEDS ORDERED: INFLUENZA VIRUS VACCINE QVS 2022-23 (6MO+)/PF 60 MCG/0.5 ML SYRINGE IM. ONE (02:15)
[2022-11-05 04:11] VITALS: BP 123/67
[2022-11-05 07:44] LABS: APPEARANCE,URINE CLEAR (CLEAR); BILIRUBIN,URINE NEGATIVE (NEGATIVE); GLUCOSE, URINE (UA) NEGATIVE (NEGATIVE); KETONES,URINE NEGATIVE (NEGATIVE); LEUKOCYTE ESTERASE ,URINE NEGATIVE (NEGATIVE); NITRATE,URINE NEGATIVE (NEGATIVE); OCCULT BLOOD,URINE NEGATIVE (NEGATIVE); PH,URINE 6.5 (5.0-8.0); PROTEIN,URINE NEGATIVE (NEGATIVE); SPECIFIC GRAVITIY, URINE 1.004 (1.003-1.030); UROBILINOGEN,URINE <=1.0 mg/dL (<=1.0)
[2022-11-05 07:46] LABS: AMPHET/METH SCREEN,URINE NEGATIVE (NEGATIVE); BARBITURATE SCREEN, URINE NEGATIVE (NEGATIVE); BENZODIAZEPINES SCREEN,URINE NEGATIVE (NEGATIVE); CANNABINOID SCREEN,URINE NEGATIVE (NEGATIVE); COCAINE SCREEN,URINE NEGATIVE (NEGATIVE); METHADONE SCREEN, URINE NEGATIVE (NEGATIVE); OPIATE SCREEN,URINE NEGATIVE (NEGATIVE); PHENCYCLIDINE SCREEN,URINE NEGATIVE (NEGATIVE)
[2022-11-05] MEDS: OMEGA-3/DHA/EPA/FISH OIL 1,000 MG CAPSULE PO SCH ×2 (08:35→09:00)
[2022-11-05] MEDS: NALTREXONE HCL 50 MG TABLET PO SCH ×2 (08:35→09:00)
[2022-11-05] MEDS: FAMOTIDINE 20 MG TABLET PO SCH ×2 (08:35→09:00)
[2022-11-05 14:06] LABS: BASOPHILS % (AUTO) 0.6 % (0.0-2.0); EOSINOPHILS % (AUTO) 0.3 % (1.0-6.0); HEMATOCRIT 45.6 % (41-53); HEMOGLOBIN 15.3 g/dL (13.5-17.5); LYMPHOCYTES # (AUTO) 0.9 K/uL (1.0-4.8); LYMPHOCYTES % (AUTO) 22.4 % (22.0-44.0); MEAN CORPUSCULAR HEMOGLOBIN 29.3 pg (26.0-34.0); MEAN CORPUSCULAR HGB CONC 33.6 G/dL (31.0-37.0); MEAN CORPUSCULAR VOLUME 87 fL (80-100); MONOCYTES # (AUTO) 0.4 K/uL (0.1-1.0); MONOCYTES % (AUTO) 9.4 % (2.0-9.0); NEUTROPHILS # (AUTO) 2.7 K/uL (1.8-7.7); NEUTROPHILS % (AUTO) 67.3 % (40.0-70.0); PLATELET COUNT (AUTO) 157 K/uL (150-450); RED BLOOD CELL COUNT(AUTO) 5.23 MIL/uL (4.50-5.90); RED CELL DISTRIBUTION WIDTH 15.2 % (11.5-14.5)
[2022-11-05 14:21] LABS: ALANINE AMINOTRANSFERASE 11 U/L (12-78); ALBUMIN 4.4 g/dL (3.4-5.0); ALKALINE PHOSPHATASE 43 U/L (46-116); ANION GAP 7 mmol/L (8-16); ASPARTATE AMINOTRANSFERASE 13 U/L (15-37); BILIRUBIN,TOTAL 0.7 mg/dL (0.1-1.0); CALCIUM, TOTAL 9.7 mg/dL (8.8-10.5); CARBON DIOXIDE 33 mmol/L (22-29); CHLORIDE 103 mmol/L (98-107); CREATININE 0.69 mg/dL (0.60-1.30); GLOMERULAR FILTR. RATE CALC > 60 mL/min (>60); GLUCOSE,RANDOM 103 mg/dL (70-110); PHOSPHORUS 3.4 mg/dL (2.5-4.9); POTASSIUM 3.6 mmol/L (3.5-5.1); SODIUM SERUM 143 mmol/L (136-145); TOTAL PROTEIN, SERUM 7.1 g/dL (6.4-8.2); UREA NITROGEN, BLOOD 7 mg/dL (7-18)
[2022-11-05 15:31] VITALS: BP 143/71
[2022-11-05] MEDS: DEXTROSE 5%-0.45% SODIUM CHL 1,000 ML IV SCH (19:30)
[2022-11-05 20:00] VITALS: BP 119/75
[2022-11-05] MEDS: OLANZapine 10 MG RAPDIS TABLET PO SCH (20:10)
[2022-11-05] MEDS: DULoxetine HCL 20 MG CAPSULE PO SCH (20:10)
[2022-11-05] MEDS: MELATONIN 5 MG TABLET PO SCH (20:10)
[2022-11-06 04:45] VITALS: BP 144/94
[2022-11-06] MEDS: DEXTROSE 5%-0.45% SODIUM CHL 1,000 ML IV SCH ×3 (05:30→17:44)
[2022-11-06 08:50] VITALS: BP 128/67
[2022-11-06] MEDS: OMEGA-3/DHA/EPA/FISH OIL 1,000 MG CAPSULE PO SCH ×2 (09:00→15:23)
[2022-11-06] MEDS: NALTREXONE HCL 50 MG TABLET PO SCH ×2 (09:00→15:22)
[2022-11-06] MEDS: FAMOTIDINE 20 MG TABLET PO SCH ×2 (09:00→15:22)
[2022-11-06 16:00] VITALS: BP 137/82
[2022-11-06 19:25] VITALS: BP 105/60
[2022-11-06] MEDS: MELATONIN 5 MG TABLET PO SCH (20:11)
[2022-11-06] MEDS: DULoxetine HCL 20 MG CAPSULE PO SCH (20:11)
[2022-11-06] MEDS: OLANZapine 10 MG RAPDIS TABLET PO SCH (20:11)
[2022-11-07] MEDS: DEXTROSE 5%-0.45% SODIUM CHL 1,000 ML IV SCH ×3 (01:30→20:13)
[2022-11-07 03:28] VITALS: BP 142/80
[2022-11-07 07:34] VITALS: BP 124/70
[2022-11-07] MEDS: NALTREXONE HCL 50 MG TABLET PO SCH (09:00)
[2022-11-07] MEDS: FAMOTIDINE 20 MG TABLET PO SCH (09:00)
[2022-11-07] MEDS: OMEGA-3/DHA/EPA/FISH OIL 1,000 MG CAPSULE PO SCH (09:00)
[2022-11-07] MEDS ORDERED: IOHEXOL 350 MG/ML 100 ML VIAL ONE (11:19)
[2022-11-07] MEDS ORDERED: SODIUM CHLORIDE 0.9% 100 ML ONE (11:20)
[2022-11-07 15:36] VITALS: BP 109/68
[2022-11-07 15:40] LABS: BASOPHILS % (AUTO) 0.6 % (0.0-2.0); EOSINOPHILS % (AUTO) 2.1 % (1.0-6.0); HEMATOCRIT 45.6 % (41-53); HEMOGLOBIN 15.3 g/dL (13.5-17.5); LYMPHOCYTES # (AUTO) 0.9 K/uL (1.0-4.8); LYMPHOCYTES % (AUTO) 28.2 % (22.0-44.0); MEAN CORPUSCULAR HGB CONC 33.5 G/dL (31.0-37.0); MEAN CORPUSCULAR VOLUME 87 fL (80-100); MONOCYTES # (AUTO) 0.3 K/uL (0.1-1.0); NEUTROPHILS % (AUTO) 60.1 % (40.0-70.0); PLATELET COUNT (AUTO) 146 K/uL (150-450); RED BLOOD CELL COUNT(AUTO) 5.26 MIL/uL (4.50-5.90)
[2022-11-07 15:56] LABS: ALANINE AMINOTRANSFERASE 17 U/L (12-78); ALBUMIN 3.7 g/dL (3.4-5.0); ALKALINE PHOSPHATASE 44 U/L (46-116); ANION GAP 1 mmol/L (8-16); ASPARTATE AMINOTRANSFERASE 17 U/L (15-37); BILIRUBIN,TOTAL 0.6 mg/dL (0.1-1.0); CALCIUM, TOTAL 9.5 mg/dL (8.8-10.5); CARBON DIOXIDE 36 mmol/L (22-29); CHLORIDE 106 mmol/L (98-107); CREATININE 0.66 mg/dL (0.60-1.30); GLOMERULAR FILTR. RATE CALC > 60 mL/min (>60); GLUCOSE,RANDOM 118 mg/dL (70-110); PHOSPHORUS 3.4 mg/dL (2.5-4.9); SODIUM SERUM 143 mmol/L (136-145); TOTAL PROTEIN, SERUM 6.5 g/dL (6.4-8.2); UREA NITROGEN, BLOOD 7 mg/dL (7-18)
[2022-11-07] MEDS: DULoxetine HCL 20 MG CAPSULE PO SCH ×2 (20:02→21:00)
[2022-11-07] MEDS: MELATONIN 5 MG TABLET PO SCH ×2 (20:03→21:00)
[2022-11-07] MEDS: OLANZapine 10 MG RAPDIS TABLET PO SCH ×2 (20:03→21:00)
[2022-11-07 20:10] VITALS: BP 113/71
[2022-11-08 05:15] VITALS: BP 133/86
[2022-11-08] MEDS: DEXTROSE 5%-0.45% SODIUM CHL 1,000 ML IV SCH ×2 (06:16→15:45)
[2022-11-08 08:05] VITALS: BP 128/77
[2022-11-08] MEDS: FAMOTIDINE 20 MG TABLET PO SCH (08:15)
[2022-11-08] MEDS: NALTREXONE HCL 50 MG TABLET PO SCH (08:15)
[2022-11-08] MEDS: OMEGA-3/DHA/EPA/FISH OIL 1,000 MG CAPSULE PO SCH (08:15)
[2022-11-08 16:00] VITALS: BP 105/58
[2022-11-08] MEDS: OLANZapine 10 MG RAPDIS TABLET PO SCH (20:43)
[2022-11-08] MEDS: MELATONIN 5 MG TABLET PO SCH (20:43)
[2022-11-08] MEDS: DULoxetine HCL 20 MG CAPSULE PO SCH (20:43)
[2022-11-09] MEDS: DEXTROSE 5%-0.45% SODIUM CHL 1,000 ML IV SCH ×3 (03:30→23:30)
[2022-11-09 06:00] VITALS: BP 118/62
[2022-11-09 08:08] VITALS: BP 139/93
[2022-11-09] MEDS: FAMOTIDINE 20 MG TABLET PO SCH (08:59)
[2022-11-09] MEDS: OMEGA-3/DHA/EPA/FISH OIL 1,000 MG CAPSULE PO SCH (08:59)
[2022-11-09] MEDS: NALTREXONE HCL 50 MG TABLET PO SCH (08:59)
[2022-11-09 15:45] VITALS: BP 128/78
[2022-11-09] MEDS: DULoxetine HCL 20 MG CAPSULE PO SCH (21:00)
[2022-11-09] MEDS: MELATONIN 5 MG TABLET PO SCH ×2 (21:17→22:00)
[2022-11-09] MEDS: OLANZapine 10 MG RAPDIS TABLET PO SCH ×2 (21:17→22:00)
[2022-11-10 08:14] VITALS: BP 140/90
[2022-11-10] MEDS: OMEGA-3/DHA/EPA/FISH OIL 1,000 MG CAPSULE PO SCH (08:17)
[2022-11-10] MEDS: NALTREXONE HCL 50 MG TABLET PO SCH (08:18)
[2022-11-10] MEDS: DEXTROSE 5%-0.45% SODIUM CHL 1,000 ML IV SCH ×2 (08:18→19:30)
[2022-11-10] MEDS: FAMOTIDINE 20 MG TABLET PO SCH (08:18)
[2022-11-10] MEDS: DULoxetine HCL 20 MG CAPSULE PO SCH (21:00)
[2022-11-10] MEDS: OLANZapine 10 MG RAPDIS TABLET PO SCH (21:00)
[2022-11-10] MEDS: MELATONIN 5 MG TABLET PO SCH (21:00)
[2022-11-11 04:02] VITALS: BP 126/83
[2022-11-11] MEDS: DEXTROSE 5%-0.45% SODIUM CHL 1,000 ML IV SCH ×2 (05:22→15:30)
[2022-11-11] MEDS: OMEGA-3/DHA/EPA/FISH OIL 1,000 MG CAPSULE PO SCH (09:00)
[2022-11-11] MEDS: FAMOTIDINE 20 MG TABLET PO SCH (09:00)
[2022-11-11] MEDS: NALTREXONE HCL 50 MG TABLET PO SCH (09:00)
[2022-11-11 15:46] VITALS: BP 107/81
[2022-11-11 19:45] VITALS: BP 135/64
[2022-11-11] MEDS: MELATONIN 5 MG TABLET PO SCH (21:00)
[2022-11-11] MEDS: OLANZapine 10 MG RAPDIS TABLET PO SCH (21:00)
[2022-11-11] MEDS: DULoxetine HCL 20 MG CAPSULE PO SCH (21:00)
[2022-11-12 05:00] VITALS: BP 136/73
[2022-11-12] MEDS: NALTREXONE HCL 50 MG TABLET PO SCH ×2 (08:16→08:18)
[2022-11-12] MEDS: FAMOTIDINE 20 MG TABLET PO SCH ×2 (08:16→08:18)
[2022-11-12] MEDS: OMEGA-3/DHA/EPA/FISH OIL 1,000 MG CAPSULE PO SCH ×2 (08:16→08:18)
[2022-11-12] MEDS: DEXTROSE 5%-0.45% SODIUM CHL 1,000 ML IV SCH ×2 (11:30→21:30)
[2022-11-12 15:57] VITALS: BP 141/88
[2022-11-12] MEDS: DULoxetine HCL 20 MG CAPSULE PO SCH (21:00)
[2022-11-12] MEDS: OLANZapine 10 MG RAPDIS TABLET PO SCH (21:00)
[2022-11-12] MEDS: MELATONIN 5 MG TABLET PO SCH (21:00)
[2022-11-13 04:40] VITALS: BP 139/76
[2022-11-13] MEDS: DEXTROSE 5%-0.45% SODIUM CHL 1,000 ML IV SCH ×2 (07:30→17:30)
[2022-11-13] MEDS: OMEGA-3/DHA/EPA/FISH OIL 1,000 MG CAPSULE PO SCH (09:00)
[2022-11-13] MEDS: NALTREXONE HCL 50 MG TABLET PO SCH (09:00)
[2022-11-13] MEDS: FAMOTIDINE 20 MG TABLET PO SCH (09:00)
[2022-11-13 10:10] VITALS: BP 146/88
[2022-11-13 12:49] LABS: BASOPHILS % (AUTO) 0.4 % (0.0-2.0); EOSINOPHILS % (AUTO) 0.4 % (1.0-6.0); HEMATOCRIT 46.6 % (41-53); HEMOGLOBIN 15.4 g/dL (13.5-17.5); LYMPHOCYTES # (AUTO) 0.9 K/uL (1.0-4.8); MEAN CORPUSCULAR HEMOGLOBIN 29.4 pg (26.0-34.0); MEAN CORPUSCULAR HGB CONC 33.1 G/dL (31.0-37.0); MEAN CORPUSCULAR VOLUME 89 fL (80-100); MONOCYTES # (AUTO) 0.5 K/uL (0.1-1.0); MONOCYTES % (AUTO) 9.1 % (2.0-9.0); NEUTROPHILS # (AUTO) 3.8 K/uL (1.8-7.7); NEUTROPHILS % (AUTO) 73.1 % (40.0-70.0); PLATELET COUNT (AUTO) 184 K/uL (150-450); RED BLOOD CELL COUNT(AUTO) 5.24 MIL/uL (4.50-5.90)
[2022-11-13 13:03] LABS: ALANINE AMINOTRANSFERASE 17 U/L (12-78); ALBUMIN 4.6 g/dL (3.4-5.0); ALKALINE PHOSPHATASE 52 U/L (46-116); ANION GAP 6 mmol/L (8-16); ASPARTATE AMINOTRANSFERASE 15 U/L (15-37); BILIRUBIN,TOTAL 0.6 mg/dL (0.1-1.0); CALCIUM, TOTAL 9.8 mg/dL (8.8-10.5); CARBON DIOXIDE 33 mmol/L (22-29); CHLORIDE 102 mmol/L (98-107); CREATININE 0.79 mg/dL (0.60-1.30); GLOMERULAR FILTR. RATE CALC > 60 mL/min (>60); GLUCOSE,RANDOM 119 mg/dL (70-110); POTASSIUM 3.7 mmol/L (3.5-5.1); SODIUM SERUM 141 mmol/L (136-145); TOTAL PROTEIN, SERUM 7.8 g/dL (6.4-8.2); UREA NITROGEN, BLOOD 19 mg/dL (7-18)
[2022-11-13 14:54] LABS: PHOSPHORUS 3.3 mg/dL (2.5-4.9)
[2022-11-13 15:25] VITALS: BP 121/75
[2022-11-13 19:30] VITALS: BP 101/69
[2022-11-13] MEDS: OLANZapine 10 MG RAPDIS TABLET PO SCH (20:49)
[2022-11-13] MEDS: DULoxetine HCL 20 MG CAPSULE PO SCH (20:49)
[2022-11-13] MEDS: MELATONIN 5 MG TABLET PO SCH (20:49)
[2022-11-14 08:17] VITALS: BP 138/69
[2022-11-14] MEDS: NALTREXONE HCL 50 MG TABLET PO SCH (08:28)
[2022-11-14] MEDS: OMEGA-3/DHA/EPA/FISH OIL 1,000 MG CAPSULE PO SCH (08:28)
[2022-11-14] MEDS: FAMOTIDINE 20 MG TABLET PO SCH (08:28)
[2022-11-14 12:07] LABS: COVID AG,FIA SOURCE NASOPHARYNGEAL
== END 2022-11-14 13:30 | DRG 640 ==
LOC: EMS 17:01 → 6S 21:39
PROVIDERS: ADMIT Internal Medicine; ATTEND Internal Medicine
DX: R62.7 Adult failure to thrive (principal); E43 Unspecified severe protein-calorie malnutrition; Z68.1 Body mass index [BMI] 19.9 or less, adult; F32.9 Major depressive disorder, single episode, unspecified; R13.10 Dysphagia, unspecified; F41.9 Anxiety disorder, unspecified; Z20.822 Contact with and (suspected) exposure to COVID-19; Z88.0 Allergy status to penicillin
CPT/HCPCS: 80053; 80307; 81003; 83036; 83735; 84100; 85025; 92523; 92610; 99285; J7050; Q9967

== ENCOUNTER 2022-11-14 12:14 | Inpatient (IN) | payer MEDICARE, MEDICAID ==
[~2022-11-14] VITALS: Ht 177.8 cm; Wt 51.9 kg
[2022-11-14 16:34] VITALS: BP 139/90
[2022-11-14] MEDS ORDERED: HALOPERIDOL 5 MG TABLET PO PRN (17:00)
[2022-11-14] MEDS ORDERED: LORazepam 1 MG TABLET PO PRN (17:00)
[2022-11-14] MEDS ORDERED: ZOLPIDEM TARTRATE 10 MG TABLET PO PRN (17:00)
[2022-11-14] MEDS ORDERED: MAGNESIUM HYDROXIDE SUSPENSION 30 ML UDCUP PO PRN (17:30)
[2022-11-14] MEDS ORDERED: ALBUTEROL SULFATE 2.5 MG/0.5 ML NEB SOLUTION NEB PRN (17:30)
[2022-11-14] MEDS ORDERED: IPRATROPIUM BROMIDE 0.5 MG/2.5 ML NEB SOLUTION NEB PRN (17:30)
[2022-11-14] MEDS ORDERED: BISACODYL 5 MG EC TABLET PO PRN (17:30)
[2022-11-14] MEDS ORDERED: ACETAMINOPHEN 325 MG TABLET PO PRN (17:30)
[2022-11-14] MEDS: OLANZapine 10 MG RAPDIS TABLET PO SCH (20:45)
[2022-11-14 21:28] VITALS: BP 131/69
[2022-11-15] MEDS: TERBINAFINE HCL 1% 30 GM CREAM TP SCH (09:00)
[2022-11-15] MEDS: OMEGA-3/DHA/EPA/FISH OIL 1,000 MG CAPSULE PO SCH (09:00)
[2022-11-15] MEDS: FAMOTIDINE 20 MG TABLET PO SCH (09:00)
[2022-11-15 16:00] VITALS: BP 114/65
[2022-11-15 20:37] VITALS: BP 149/84
[2022-11-15] MEDS: OLANZapine 10 MG RAPDIS TABLET PO SCH (20:38)
[2022-11-16] MEDS: OMEGA-3/DHA/EPA/FISH OIL 1,000 MG CAPSULE PO SCH (09:00)
[2022-11-16] MEDS: TERBINAFINE HCL 1% 30 GM CREAM TP SCH (09:00)
[2022-11-16] MEDS: FAMOTIDINE 20 MG TABLET PO SCH (09:00)
[2022-11-16] MEDS: MULTIVITAMINS WITH MINERALS, THERAPEUTIC TABLET PO SCH (09:00)
[2022-11-16 09:11] VITALS: BP 110/69
[2022-11-16 16:46] VITALS: BP 115/70
[2022-11-16 20:51] VITALS: BP 118/82
[2022-11-16] MEDS: OLANZapine 10 MG RAPDIS TABLET PO SCH (21:00)
[2022-11-17] MEDS: FAMOTIDINE 20 MG TABLET PO SCH (09:00)
[2022-11-17] MEDS: MULTIVITAMINS WITH MINERALS, THERAPEUTIC TABLET PO SCH (09:00)
[2022-11-17] MEDS: TERBINAFINE HCL 1% 30 GM CREAM TP SCH (09:00)
[2022-11-17] MEDS: OMEGA-3/DHA/EPA/FISH OIL 1,000 MG CAPSULE PO SCH (09:00)
[2022-11-17 20:37] VITALS: BP 131/76
[2022-11-17] MEDS: OLANZapine 10 MG RAPDIS TABLET PO SCH (21:00)
[2022-11-18] MEDS: MULTIVITAMINS WITH MINERALS, THERAPEUTIC TABLET PO SCH (08:37)
[2022-11-18] MEDS: FAMOTIDINE 20 MG TABLET PO SCH (08:37)
[2022-11-18] MEDS: OMEGA-3/DHA/EPA/FISH OIL 1,000 MG CAPSULE PO SCH (08:37)
[2022-11-18] MEDS: TERBINAFINE HCL 1% 30 GM CREAM TP SCH (08:38)
[2022-11-18 20:23] VITALS: BP 115/76
[2022-11-18] MEDS: OLANZapine 10 MG RAPDIS TABLET PO SCH (21:00)
[2022-11-19] MEDS: OMEGA-3/DHA/EPA/FISH OIL 1,000 MG CAPSULE PO SCH (08:49)
[2022-11-19] MEDS: FAMOTIDINE 20 MG TABLET PO SCH (08:49)
[2022-11-19] MEDS: MULTIVITAMINS WITH MINERALS, THERAPEUTIC TABLET PO SCH (08:49)
[2022-11-19] MEDS: TERBINAFINE HCL 1% 30 GM CREAM TP SCH (09:00)
[2022-11-19 09:32] VITALS: BP 110/69
[2022-11-19 16:08] VITALS: BP 99/70
[2022-11-19] MEDS: OLANZapine 10 MG RAPDIS TABLET PO SCH (21:00)
[2022-11-20 08:20] LABS: COVID AG,FIA SOURCE NASAL SWAB
[2022-11-20] MEDS: TERBINAFINE HCL 1% 30 GM CREAM TP SCH (08:50)
[2022-11-20] MEDS: FAMOTIDINE 20 MG TABLET PO SCH (08:50)
[2022-11-20] MEDS: OMEGA-3/DHA/EPA/FISH OIL 1,000 MG CAPSULE PO SCH (08:50)
[2022-11-20] MEDS: MULTIVITAMINS WITH MINERALS, THERAPEUTIC TABLET PO SCH (08:50)
[2022-11-20] MEDS: OLANZapine 10 MG RAPDIS TABLET PO SCH (20:04)
[2022-11-21] MEDS: OMEGA-3/DHA/EPA/FISH OIL 1,000 MG CAPSULE PO SCH (09:00)
[2022-11-21] MEDS: FAMOTIDINE 20 MG TABLET PO SCH (09:00)
[2022-11-21] MEDS: TERBINAFINE HCL 1% 30 GM CREAM TP SCH (09:00)
[2022-11-21] MEDS: MULTIVITAMINS WITH MINERALS, THERAPEUTIC TABLET PO SCH (09:00)
[2022-11-21 16:24] VITALS: BP 136/69
[2022-11-21 20:27] VITALS: BP 121/81
[2022-11-21] MEDS: OLANZapine 10 MG RAPDIS TABLET PO SCH (21:00)
[2022-11-22] MEDS: FAMOTIDINE 20 MG TABLET PO SCH (09:00)
[2022-11-22] MEDS: OMEGA-3/DHA/EPA/FISH OIL 1,000 MG CAPSULE PO SCH (09:00)
[2022-11-22] MEDS: TERBINAFINE HCL 1% 30 GM CREAM TP SCH (09:00)
[2022-11-22] MEDS: MULTIVITAMINS WITH MINERALS, THERAPEUTIC TABLET PO SCH (09:00)
[2022-11-22 16:55] VITALS: BP 161/121
[2022-11-22 20:40] VITALS: BP 114/74
[2022-11-22] MEDS: OLANZapine 10 MG RAPDIS TABLET PO SCH (20:48)
[2022-11-23 08:52] VITALS: BP 99/79
[2022-11-23] MEDS: OMEGA-3/DHA/EPA/FISH OIL 1,000 MG CAPSULE PO SCH (09:00)
[2022-11-23] MEDS: TERBINAFINE HCL 1% 30 GM CREAM TP SCH (09:00)
[2022-11-23] MEDS: FAMOTIDINE 20 MG TABLET PO SCH (09:00)
[2022-11-23] MEDS: MULTIVITAMINS WITH MINERALS, THERAPEUTIC TABLET PO SCH (09:00)
[2022-11-23 16:19] VITALS: BP 103/69
[2022-11-23 20:05] VITALS: BP 116/60
[2022-11-23] MEDS: OLANZapine 10 MG RAPDIS TABLET PO SCH (20:19)
[2022-11-24 08:00] VITALS: BP 124/58
[2022-11-24] MEDS: TERBINAFINE HCL 1% 30 GM CREAM TP SCH (09:00)
[2022-11-24] MEDS: MULTIVITAMINS WITH MINERALS, THERAPEUTIC TABLET PO SCH (09:00)
[2022-11-24] MEDS: FAMOTIDINE 20 MG TABLET PO SCH (09:00)
[2022-11-24] MEDS: OMEGA-3/DHA/EPA/FISH OIL 1,000 MG CAPSULE PO SCH (09:00)
[2022-11-24 09:12] VITALS: BP 126/58
[2022-11-24] MEDS ORDERED: HALOPERIDOL LACTATE 5 MG/ML VIAL IM ONE (11:45)
[2022-11-24] MEDS: OLANZapine 10 MG RAPDIS TABLET PO SCH (20:23)
[2022-11-24 21:50] VITALS: BP 95/61
[2022-11-24] MEDS: HALOPERIDOL LACTATE 5 MG/ML VIAL IM PRN (22:17)
[2022-11-25] MEDS: FAMOTIDINE 20 MG TABLET PO SCH ×2 (08:35→09:00)
[2022-11-25] MEDS: MULTIVITAMINS WITH MINERALS, THERAPEUTIC TABLET PO SCH ×2 (08:35→09:00)
[2022-11-25] MEDS: OMEGA-3/DHA/EPA/FISH OIL 1,000 MG CAPSULE PO SCH ×2 (08:35→09:00)
[2022-11-25] MEDS: TERBINAFINE HCL 1% 30 GM CREAM TP SCH (08:37)
[2022-11-25] MEDS: HALOPERIDOL LACTATE 5 MG/ML VIAL IM PRN (20:39)
[2022-11-25] MEDS: OLANZapine 10 MG RAPDIS TABLET PO SCH (20:40)
[2022-11-25 21:21] VITALS: BP 139/79
[2022-11-26] MEDS: OMEGA-3/DHA/EPA/FISH OIL 1,000 MG CAPSULE PO SCH (09:00)
[2022-11-26] MEDS: TERBINAFINE HCL 1% 30 GM CREAM TP SCH (09:00)
[2022-11-26] MEDS: MULTIVITAMINS WITH MINERALS, THERAPEUTIC TABLET PO SCH (09:00)
[2022-11-26] MEDS: FAMOTIDINE 20 MG TABLET PO SCH (09:00)
[2022-11-26 16:05] VITALS: BP 121/55
[2022-11-26 20:05] VITALS: BP 123/71
[2022-11-26] MEDS: OLANZapine 10 MG RAPDIS TABLET PO SCH (20:43)
[2022-11-26] MEDS: HALOPERIDOL LACTATE 5 MG/ML VIAL IM PRN (20:44)
[2022-11-27 08:20] LABS: COVID AG,FIA SOURCE NASAL SWAB
[2022-11-27 08:36] VITALS: BP 134/80
[2022-11-27] MEDS: TERBINAFINE HCL 1% 30 GM CREAM TP SCH (08:38)
[2022-11-27] MEDS: OMEGA-3/DHA/EPA/FISH OIL 1,000 MG CAPSULE PO SCH (08:38)
[2022-11-27] MEDS: MULTIVITAMINS WITH MINERALS, THERAPEUTIC TABLET PO SCH (08:38)
[2022-11-27] MEDS: FAMOTIDINE 20 MG TABLET PO SCH (08:38)
[2022-11-27] MEDS: OLANZapine 10 MG RAPDIS TABLET PO SCH (20:47)
[2022-11-27] MEDS: HALOPERIDOL LACTATE 5 MG/ML VIAL IM PRN (20:56)
[2022-11-28 08:46] VITALS: BP 164/83
[2022-11-28] MEDS: OMEGA-3/DHA/EPA/FISH OIL 1,000 MG CAPSULE PO SCH (08:47)
[2022-11-28] MEDS: MULTIVITAMINS WITH MINERALS, THERAPEUTIC TABLET PO SCH (08:47)
[2022-11-28] MEDS: FAMOTIDINE 20 MG TABLET PO SCH (08:47)
[2022-11-28] MEDS: TERBINAFINE HCL 1% 30 GM CREAM TP SCH (08:55)
[2022-11-28 16:57] VITALS: BP 155/75
[2022-11-28 20:11] VITALS: BP 141/80
[2022-11-28] MEDS: HALOPERIDOL 10 MG TABLET PO SCH (21:00)
[2022-11-28] MEDS: HALOPERIDOL LACTATE 5 MG/ML VIAL IM PRN (21:13)
[2022-11-29 08:28] VITALS: BP 131/80
[2022-11-29] MEDS: FAMOTIDINE 20 MG TABLET PO SCH (09:00)
[2022-11-29] MEDS: TERBINAFINE HCL 1% 30 GM CREAM TP SCH (09:00)
[2022-11-29] MEDS: OMEGA-3/DHA/EPA/FISH OIL 1,000 MG CAPSULE PO SCH (09:00)
[2022-11-29] MEDS: MULTIVITAMINS WITH MINERALS, THERAPEUTIC TABLET PO SCH (09:00)
[2022-11-29 18:18] VITALS: BP 101/69
[2022-11-29 20:33] VITALS: BP 164/91
[2022-11-29] MEDS: HALOPERIDOL 10 MG TABLET PO SCH (20:57)
[2022-11-29] MEDS: HALOPERIDOL LACTATE 5 MG/ML VIAL IM PRN (21:00)
[2022-11-30 08:24] VITALS: BP 120/68
[2022-11-30] MEDS: MULTIVITAMINS WITH MINERALS, THERAPEUTIC TABLET PO SCH (09:00)
[2022-11-30] MEDS: FAMOTIDINE 20 MG TABLET PO SCH (09:00)
[2022-11-30] MEDS: OMEGA-3/DHA/EPA/FISH OIL 1,000 MG CAPSULE PO SCH (09:00)
[2022-11-30] MEDS: TERBINAFINE HCL 1% 30 GM CREAM TP SCH (09:00)
[2022-11-30 16:47] VITALS: BP 155/90
[2022-11-30 20:16] VITALS: BP 116/68
[2022-11-30] MEDS: HALOPERIDOL 10 MG TABLET PO SCH (20:52)
[2022-11-30] MEDS: HALOPERIDOL LACTATE 5 MG/ML VIAL IM PRN (20:56)
[2022-12-01 08:42] VITALS: BP 129/89
[2022-12-01] MEDS: OMEGA-3/DHA/EPA/FISH OIL 1,000 MG CAPSULE PO SCH (09:00)
[2022-12-01] MEDS: MULTIVITAMINS WITH MINERALS, THERAPEUTIC TABLET PO SCH (09:00)
[2022-12-01] MEDS: FAMOTIDINE 20 MG TABLET PO SCH (09:00)
[2022-12-01] MEDS: TERBINAFINE HCL 1% 30 GM CREAM TP SCH (09:00)
[2022-12-01 16:11] VITALS: BP 159/85
[2022-12-01 20:34] VITALS: BP 147/84
[2022-12-01] MEDS: HALOPERIDOL 10 MG TABLET PO SCH (21:00)
[2022-12-01] MEDS: HALOPERIDOL LACTATE 5 MG/ML VIAL IM PRN (21:12)
[2022-12-02 08:00] VITALS: BP 157/79
[2022-12-02] MEDS: OMEGA-3/DHA/EPA/FISH OIL 1,000 MG CAPSULE PO SCH (09:00)
[2022-12-02] MEDS: TERBINAFINE HCL 1% 30 GM CREAM TP SCH (09:00)
[2022-12-02] MEDS: FAMOTIDINE 20 MG TABLET PO SCH (09:00)
[2022-12-02] MEDS: MULTIVITAMINS WITH MINERALS, THERAPEUTIC TABLET PO SCH (09:00)
[2022-12-02 16:18] VITALS: BP 132/81
[2022-12-02] MEDS: HALOPERIDOL 10 MG TABLET PO SCH (21:00)
[2022-12-02] MEDS: HALOPERIDOL LACTATE 5 MG/ML VIAL IM PRN (21:11)
[2022-12-02 22:44] VITALS: BP 113/58
[2022-12-03] MEDS: MULTIVITAMINS WITH MINERALS, THERAPEUTIC TABLET PO SCH (09:00)
[2022-12-03] MEDS: TERBINAFINE HCL 1% 30 GM CREAM TP SCH (09:00)
[2022-12-03] MEDS: OMEGA-3/DHA/EPA/FISH OIL 1,000 MG CAPSULE PO SCH (09:00)
[2022-12-03] MEDS: FAMOTIDINE 20 MG TABLET PO SCH (09:00)
[2022-12-03] MEDS ORDERED: HALOPERIDOL LACTATE 5 MG/ML VIAL IM PRN (14:30)
[2022-12-03 16:31] VITALS: BP 137/92
[2022-12-03] MEDS: BENZTROPINE MESYLATE 2 MG TABLET PO SCH (21:00)
[2022-12-03] MEDS: HALOPERIDOL 10 MG TABLET PO SCH (21:00)
[2022-12-04 07:54] LABS: COVID AG,FIA SOURCE NASAL SWAB
[2022-12-04 08:47] VITALS: BP 149/85
[2022-12-04] MEDS: OMEGA-3/DHA/EPA/FISH OIL 1,000 MG CAPSULE PO SCH (09:00)
[2022-12-04] MEDS: MULTIVITAMINS WITH MINERALS, THERAPEUTIC TABLET PO SCH (09:00)
[2022-12-04] MEDS: TERBINAFINE HCL 1% 30 GM CREAM TP SCH (09:00)
[2022-12-04] MEDS: FAMOTIDINE 20 MG TABLET PO SCH (09:00)
[2022-12-04] MEDS ORDERED: PALIPERIDONE PALMITATE 234 MG/1.5 ML SYRINGE IM ONE (11:00)
[2022-12-04] MEDS ORDERED: BENZTROPINE MESYLATE 2 MG TABLET PO ONE (14:30)
[2022-12-04 16:24] VITALS: BP 123/68
[2022-12-04] MEDS: BENZTROPINE MESYLATE 2 MG TABLET PO SCH (21:00)
[2022-12-05 06:07] VITALS: BP 123/77
[2022-12-05] MEDS: OMEGA-3/DHA/EPA/FISH OIL 1,000 MG CAPSULE PO SCH (08:42)
[2022-12-05] MEDS: FAMOTIDINE 20 MG TABLET PO SCH (08:42)
[2022-12-05] MEDS: MULTIVITAMINS WITH MINERALS, THERAPEUTIC TABLET PO SCH (08:43)
[2022-12-05] MEDS: TERBINAFINE HCL 1% 30 GM CREAM TP SCH (08:43)
[2022-12-05 16:06] VITALS: BP 132/72
[2022-12-05 20:16] VITALS: BP 113/63
[2022-12-05] MEDS: BENZTROPINE MESYLATE 2 MG TABLET PO SCH (21:00)
[2022-12-06] MEDS: TERBINAFINE HCL 1% 30 GM CREAM TP SCH (09:00)
[2022-12-06] MEDS: MULTIVITAMINS WITH MINERALS, THERAPEUTIC TABLET PO SCH (09:00)
[2022-12-06] MEDS: FAMOTIDINE 20 MG TABLET PO SCH (09:00)
[2022-12-06] MEDS: OMEGA-3/DHA/EPA/FISH OIL 1,000 MG CAPSULE PO SCH (09:00)
[2022-12-06 09:03] VITALS: BP 131/71
[2022-12-06 16:44] VITALS: BP 100/61
[2022-12-06] MEDS: BENZTROPINE MESYLATE 2 MG TABLET PO SCH (20:07)
[2022-12-06 20:43] VITALS: BP_SYST 101; BP_DIAS 56; BP_DIAS 60
[2022-12-07] MEDS: FAMOTIDINE 20 MG TABLET PO SCH ×2 (09:00→10:11)
[2022-12-07] MEDS: TERBINAFINE HCL 1% 30 GM CREAM TP SCH ×2 (09:00→10:13)
[2022-12-07] MEDS: OMEGA-3/DHA/EPA/FISH OIL 1,000 MG CAPSULE PO SCH ×2 (09:00→10:11)
[2022-12-07] MEDS: MULTIVITAMINS WITH MINERALS, THERAPEUTIC TABLET PO SCH ×2 (09:00→10:11)
[2022-12-07] MEDS: BENZTROPINE MESYLATE 2 MG TABLET PO SCH (20:20)
[2022-12-07 21:47] VITALS: BP 95/53
[2022-12-08] MEDS: FAMOTIDINE 20 MG TABLET PO SCH (07:55)
[2022-12-08] MEDS: OMEGA-3/DHA/EPA/FISH OIL 1,000 MG CAPSULE PO SCH (07:55)
[2022-12-08] MEDS: TERBINAFINE HCL 1% 30 GM CREAM TP SCH (07:55)
[2022-12-08] MEDS: MULTIVITAMINS WITH MINERALS, THERAPEUTIC TABLET PO SCH (07:55)
[2022-12-08 08:55] VITALS: BP 138/79
[2022-12-08] MEDS ORDERED: LORazepam 2 MG/ML VIAL ONE (12:25)
[2022-12-08] MEDS ORDERED: LORazepam 2 MG/ML VIAL IM ONE ×2 (12:30→13:00)
[2022-12-08 20:41] VITALS: BP 136/88
[2022-12-08] MEDS: BENZTROPINE MESYLATE 2 MG TABLET PO SCH (21:00)
[2022-12-09] MEDS: MULTIVITAMINS WITH MINERALS, THERAPEUTIC TABLET PO SCH (08:35)
[2022-12-09] MEDS: FAMOTIDINE 20 MG TABLET PO SCH (08:35)
[2022-12-09] MEDS: OMEGA-3/DHA/EPA/FISH OIL 1,000 MG CAPSULE PO SCH (08:35)
[2022-12-09] MEDS: TERBINAFINE HCL 1% 30 GM CREAM TP SCH (08:35)
[2022-12-09 09:44] VITALS: BP 132/70
[2022-12-09] MEDS: BENZTROPINE MESYLATE 2 MG TABLET PO SCH (21:00)
[2022-12-10] MEDS: OMEGA-3/DHA/EPA/FISH OIL 1,000 MG CAPSULE PO SCH (09:00)
[2022-12-10] MEDS: FAMOTIDINE 20 MG TABLET PO SCH (09:00)
[2022-12-10] MEDS: MULTIVITAMINS WITH MINERALS, THERAPEUTIC TABLET PO SCH (09:00)
[2022-12-10] MEDS: TERBINAFINE HCL 1% 30 GM CREAM TP SCH (09:00)
[2022-12-10 09:26] VITALS: BP 127/79
[2022-12-10 16:47] VITALS: BP 106/53
[2022-12-10] MEDS: BENZTROPINE MESYLATE 2 MG TABLET PO SCH (21:00)
[2022-12-10 22:14] VITALS: BP 98/62
[2022-12-11 06:48] LABS: COVID AG,FIA SOURCE NASAL SWAB
[2022-12-11] MEDS: FAMOTIDINE 20 MG TABLET PO SCH (09:00)
[2022-12-11] MEDS: TERBINAFINE HCL 1% 30 GM CREAM TP SCH (09:00)
[2022-12-11] MEDS: OMEGA-3/DHA/EPA/FISH OIL 1,000 MG CAPSULE PO SCH (09:00)
[2022-12-11] MEDS: MULTIVITAMINS WITH MINERALS, THERAPEUTIC TABLET PO SCH (09:00)
[2022-12-11 09:47] VITALS: BP 159/91
[2022-12-11 16:39] VITALS: BP 143/93
[2022-12-11] MEDS: BENZTROPINE MESYLATE 2 MG TABLET PO SCH (20:11)
[2022-12-11 20:48] VITALS: BP 164/87
[2022-12-12 08:37] VITALS: BP 136/80
[2022-12-12] MEDS: FAMOTIDINE 20 MG TABLET PO SCH (09:00)
[2022-12-12] MEDS: MULTIVITAMINS WITH MINERALS, THERAPEUTIC TABLET PO SCH (09:00)
[2022-12-12] MEDS: OMEGA-3/DHA/EPA/FISH OIL 1,000 MG CAPSULE PO SCH (09:00)
[2022-12-12] MEDS: TERBINAFINE HCL 1% 30 GM CREAM TP SCH (09:00)
[2022-12-12 16:20] VITALS: BP 142/95
[2022-12-12 20:31] VITALS: BP 156/80
[2022-12-12] MEDS: BENZTROPINE MESYLATE 2 MG TABLET PO SCH (20:47)
[2022-12-13] MEDS: MULTIVITAMINS WITH MINERALS, THERAPEUTIC TABLET PO SCH (08:39)
[2022-12-13] MEDS: FAMOTIDINE 20 MG TABLET PO SCH (08:39)
[2022-12-13] MEDS: OMEGA-3/DHA/EPA/FISH OIL 1,000 MG CAPSULE PO SCH (08:39)
[2022-12-13 08:42] VITALS: BP 102/70
[2022-12-13] MEDS: TERBINAFINE HCL 1% 30 GM CREAM TP SCH (08:44)
[2022-12-13 16:00] VITALS: BP 112/78
[2022-12-13] MEDS ORDERED: BENZ2TAB76 PO (16:36)
[2022-12-13] MEDS ORDERED: PALI234D IM (16:36)
[2022-12-13 20:32] VITALS: BP 111/61
[2022-12-13] MEDS: BENZTROPINE MESYLATE 2 MG TABLET PO SCH (20:50)
[2022-12-14] MEDS ORDERED: FAMO20 PO (08:18)
[2022-12-14] MEDS ORDERED: TERB250T90 PO (08:19)
[2022-12-14] MEDS ORDERED: TERB30CR8 TP (08:19)
[2022-12-14] MEDS: MULTIVITAMINS WITH MINERALS, THERAPEUTIC TABLET PO SCH (09:00)
[2022-12-14] MEDS: FAMOTIDINE 20 MG TABLET PO SCH (09:00)
[2022-12-14] MEDS: TERBINAFINE HCL 1% 30 GM CREAM TP SCH (09:00)
[2022-12-14] MEDS: OMEGA-3/DHA/EPA/FISH OIL 1,000 MG CAPSULE PO SCH (09:00)
[2023-01-01] MEDS ORDERED: PALIPERIDONE PALMITATE 234 MG/1.5 ML SYRINGE IM SCH (09:00)
== END 2022-12-14 10:25 | disposition home or self-care (01) | DRG 885 ==
LOC: 3EI 13:30
PROVIDERS: ADMIT Psychiatry & Neurology Psychiatry; ATTEND Psychiatry & Neurology Psychiatry
DX: F25.9 Schizoaffective disorder, unspecified (principal); E43 Unspecified severe protein-calorie malnutrition; G47.00 Insomnia, unspecified; R10.9 Unspecified abdominal pain; I10 Essential (primary) hypertension; R13.10 Dysphagia, unspecified; K21.9 Gastro-esophageal reflux disease without esophagitis; F41.9 Anxiety disorder, unspecified; Z56.0 Unemployment, unspecified; Z79.899 Other long term (current) drug therapy; Z20.822 Contact with and (suspected) exposure to COVID-19; Z91.199 Patient's noncompliance with other medical treatment and regimen due to unspecified reason; Z68.1 Body mass index [BMI] 19.9 or less, adult
CPT/HCPCS: 87081; J1630; J2060